=== PATIENT | female | born 1925 | race Caucasian/White ===

== ENCOUNTER 2017-02-16 10:15 | Emergency (ER) | payer OTHER ==
[~2017-02-16] VITALS: Ht 165.1 cm; Wt 70.3 kg
--- NOTE | ~2017-02-16 | EKG ---
[address] [address] ELECTROCARDIOGRAM REPORT Name: NARCISA CORONEL ZHEN Room #: DEP [facility]ITALFl[id number] Admission: 02/16/17 Attend Phys: Discharge: 02/16/17 Date of : [birth year] Report #: [id number] THIS REPORT FOR: //name// [facility] ED Test Date: 2017-02-16 Test Time: 10:29:08 Pat Name: NARCISA CORONEL Department: Room: Gender: F Jacker: scarlet : 1925 Requested By: Daisy Gonsalez Order Number: [id number] MD: Jim Romero Measurements Intervals Garber Rate: 104 P: AR: QRS: 49 QRSD: 98 T: -28 QT: 336 QTc: 442 Interpretive Statements Atrial fibrillation Poor R wave progression Compared to ECG 07/18/2014 22:36:30 No significant change was found Electronically Signed On 02-19-2017 13:24:16 CDT by Jim Romero [email or web address] <ELECTRONICALLY SIGNED> By: Jim Romero MD, [facility] 02/19/17 1324 1029 28 Jim Romero MD, FACC /EPI
[~2017-02-16 10:15] MED LIST: ACTIGALL300 MG PO; BENAZEPRIL HCL20 MG; BENAZEPRIL HCL20 MG PO; CIPROFLOXACIN500 M1 PO; COUMADIN 2.5MG2.5 M1; COUMADIN 2.5MG2.5 M1 PO; COUMADIN 3 MG TA3 MG PO; GABAPENTIN 100100 MG PO; HYDROCODON-ACE1 EAC1 PO; HYDROCODON-ACE1 EAC5 PO; HYDROCODON-ACE1 EACH PO; JANTOVEN5 MG PO; KLOR-CON 10 ER10 MEQ PO; KLOR-CON 1010 MEQ; LASIX 20 MG TAB20 MG; LEVOTHYROXIN0.088 MG PO; LIPITOR20 MG PO; LIPITOR40 MG; LIPITOR40 MG PO; MIRALAX17 GM PO; MIRALAX255 GM PO; NEURONTIN600 MG PO; PANTOPRAZOLE SO40 M1 PO; PRILOSEC 20 MG20 MG PO; PRILOSEC OTC20 MG; REGLAN 5 MG TAB5 M1 PO; SYNTHROID100 MCG; SYNTHROID100 MCG PO; SYNTHROID75 MCG PO; TOPROL XL25 MG PO; TOPROL XL50 MG PO; XARELTO15 MG PO; XARELTO20 MG PO; ZOFRAN ODT4 MG PO
[2017-02-16 11:04] LABS: ABSOLUTE NEUTROPHILS 3.3 thou/uL (1.4-8.2); BASOPHILS 0.6 % (0.0-2.0); EOSINOPHILS 1.7 % (0.0-3.0); HEMATOCRIT 45.3 % (37.0-47.0); HEMOGLOBIN 15.1 gm/dL (12.0-15.0); LYMPHOCYTES 33.8 % (24.0-44.0); MCH 30.2 pg (26.0-34.0); MCHC 33.4 g/dL (28.0-37.0); MCV 90.4 fL (80.0-100.0); PLATELET COUNT 181 thou/uL (150-400); POLYS 53.9 % (36.0-66.0); RBC 5.02 mil/uL (4.20-5.00); RDW 14.8 % (10.5-14.5); WBC 6.1 thou/uL (4.0-11.0)
[2017-02-16 11:05] LABS: MANUAL DIFF NO
[2017-02-16 11:12] LABS: ANION GAP 8 mmol/L (7-16); BUN 11 mg/dL (7-18); CALCIUM 9.7 mg/dL (8.5-10.1); CHLORIDE 102 mmol/L (98-107); CO2 28 mmol/L (21-32); CREATININE 0.9 mg/dL (0.6-1.0); GLUCOSE 96 mg/dL (74-106); POTASSIUM 3.7 mmol/L (3.5-5.1); SODIUM 138 mmol/L (136-145)
[2017-02-16 11:21] LABS: ALBUMIN 3.9 g/dL (3.4-5.0); ALKALINE PHOSPHATASE 56 U/L (46-116); MAGNESIUM 1.9 mg/dL (1.8-2.4); SGOT 20 U/L (15-37); SGPT 23 U/L (30-65); TOTAL BILIRUBIN 0.8 mg/dL (<0.1-1.0); TOTAL PROTEIN 7.6 g/dL (6.4-8.2); TROPONIN-I < 0.04 ng/mL (<0.04-0.07)
[2017-02-16] MEDS ORDERED: LEVOTHYROXIN0.075 MG PO (11:33)
[2017-02-16 11:47] LABS: URINE BILIRUBIN NEGATIVE (Negative); URINE BLOOD TRACE (Negative); URINE COLOR YELLOW; URINE GLUCOSE-RANDOM* NEGATIVE (Negative); URINE KETONES NEGATIVE (Negative); URINE NITRITE NEGATIVE (Negative); URINE PROTEIN (DIPSTICK) NEGATIVE (Negative); URINE UROBILINOGEN 0.2 E.U./dl (0.2-1.0)
[2017-02-16 12:27] LABS: CASTS None Seen /LPF (None Seen); CRYSTALS None Seen /LPF (None Seen); SQUAMOUS >10 Many /LPF (0-3); URINE RBC 0-2 Rare /HPF (0-2)
[2017-02-16 14:08] VITALS: BP 147/76
== END 2017-02-16 14:22 | disposition home or self-care (01) ==
LOC: ER 10:15
PROVIDERS: Nurse Practitioner Family
DX: R07.89 Other chest pain (principal); I10 Essential (primary) hypertension; E78.5 Hyperlipidemia, unspecified; E89.0 Postprocedural hypothyroidism; I48.91 Unspecified atrial fibrillation; Z98.890 Other specified postprocedural states; Z96.641 Presence of right artificial hip joint; Z88.0 Allergy status to penicillin; Z88.1 Allergy status to other antibiotic agents; Z88.2 Allergy status to sulfonamides; Z91.048 Other nonmedicinal substance allergy status; Z88.8 Allergy status to other drugs, medicaments and biological substances